=== PATIENT | male | born 1980 | race Caucasian/White ===

== ENCOUNTER 2022-12-18 02:31 | Observation (INO) ==
[2022-12-18 05:48] LABS: ABS Basophils 0.1 10^3/uL (0.0-0.1); ABS Monocytes 0.9 10^3/uL (0.0-1.1); ABS Neutrophils 8.3 10^3/uL (1.5-7.6); ABS Nucleated RBC 0.01 10^3/ul; Eosinophil % 0.1 %; Hematocrit 36.9 % (38-53); Hemoglobin 12.7 g/dL (13.2-16.3); Lymphocyte % 9.4 %; Mean Corpuscular Hemoglobin 30.6 pg (27-33); Mean Corpuscular Hgb Conc 34.5 g/dL (31-36); Mean Corpuscular Volume 88.8 fL (80-97); Mean Platelet Volume 7.6 fL (7.5-11.2); Nucleated Red Blood Cells % 0.1 /100 WBC (0.0-0.4); Platelet Count 250 10^3/uL (150-450); Red Blood Count 4.16 10^6/uL (4.06-5.63); Red Cell Distribution Width 14.4 % (12-17); White Blood Count 10.3 10^3/uL (3.6-10.2)
[2022-12-18 05:50] LABS: Urine Appearance Clear; Urine Bilirubin Negative (Negative); Urine Blood 1+ (Negative); Urine Color Yellow; Urine Glucose Negative (Negative); Urine Ketones Trace (Negative); Urine Nitrite Negative (Negative); Urine Protein Negative (Negative); Urine Specific Gravity 1.012 (1.002-1.030); Urine Urobilinogen Negative (Negative)
[2022-12-18 05:56] LABS: Urine Bacteria Absent (Absent); Urine Red Blood Cell 1+(3-5/hpf) (Absent); Urine White Blood Cell Trace(0-5/hpf) (Absent)
[2022-12-18 06:09] LABS: Albumin 3.8 g/dL (3.2-5.2); Albumin/Globulin Ratio 1.7 (1-3); Calcium 7.9 mg/dL (8.6-10.3); Creatinine, Serum 0.8 mg/dL (0.67-1.17); Globulin 2.2 g/dL (2-4); Potassium 3.1 mmol/L (3.5-5.0); Total Bilirubin 0.6 mg/dL (0.2-1.0); eGFR CKD-EPI 114.7 (>60)
[2022-12-18] MEDS ORDERED: Morphine 4 MG/ML VIAL (1 ml) IV ONE (06:34)
[2022-12-18] MEDS ORDERED: Potassium Chlor 20 meq TAB.ER PO ONE (06:34)
[2022-12-18] MEDS ORDERED: NS 0.9% 1000 ml BAG 1,000 ML IV ONE (06:46)
[2022-12-18] MEDS ORDERED: Buffered Lidocaine 1% SYRIN 1 ml INTRADERM ONE (09:30)
[2022-12-18] MEDS ORDERED: Famotidine IV 10 MG/ML 2 ml VIAL (20 mg) IV ONE (09:30)
[2022-12-18] MEDS ORDERED: Dexamethasone IV 4 MG/ML VIAL 1 ml VIAL IV SLOW PU ONE (09:30)
[2022-12-18] MEDS ORDERED: Lactated Ringers 1000 ml BAG 1,000 ML IV SCH (10:00)
[2022-12-18] MEDS ORDERED: Dexamethasone IV 4 MG/ML VIAL 1 ml VIAL ONE (11:10)
[2022-12-18] MEDS ORDERED: Famotidine IV 10 MG/ML 2 ml VIAL (20 mg) ONE (11:10)
[2022-12-18] MEDS ORDERED: Propofol 10 MG/ML 20 ML BTL ONE ×2 (11:14→12:59)
[2022-12-18] MEDS ORDERED: fentaNYL 100 mcg/2 ml 50 MCG/ML VIAL ONE ×4 (11:14→14:59)
[2022-12-18] MEDS ORDERED: Lidocaine 2% PF 5 ML VIAL ONE (11:15)
[2022-12-18] MEDS ORDERED: ROPIVACAINE 5 MG/ML 30 ML BTL (0.5%) ONE (11:25)
[2022-12-18] MEDS ORDERED: ceFAZolin 2 GM in NS PREMIX 2 GM/100 ML BAG IVPB ONE (11:43)
[2022-12-18] MEDS ORDERED: Glycopyrrolate IV 0.2 MG/ML 1 ML VIAL ONE (12:24)
[2022-12-18] MEDS ORDERED: Phenylephrine 40 mcg/mL 10mL (400mcg) SYRINGE ONE (12:32)
[2022-12-18] MEDS ORDERED: Labetalol IV 5 MG/ML 20 ml VIAL ONE (12:55)
[2022-12-18] MEDS ORDERED: Ondansetron 4 mg VIAL 2 MG/ML 2 ml VIAL ONE (13:15)
[2022-12-18] MEDS ORDERED: Magnesium Hydroxide LIQ 30 ML UDC PO PRN (14:06)
[2022-12-18] MEDS ORDERED: Lactulose 30 ml UDC PO PRN (14:06)
[2022-12-18] MEDS ORDERED: Ondansetron 4 mg VIAL 2 MG/ML 2 ml VIAL IV PRN (14:06)
[2022-12-18] MEDS ORDERED: Morphine 2 MG/ML SYRINGE IV PRN (14:06)
[2022-12-18] MEDS ORDERED: Ondansetron ODT 4 mg TAB 4 MG TAB PO PRN (14:06)
[2022-12-18] MEDS ORDERED: Prochlorperazine 5 mg/ml 2 ml VIAL (10 mg) IV PRN (14:12)
[2022-12-18] MEDS ORDERED: HYDROcodone/ACETAMIN 5/325 mg TAB PO PRN (14:12)
[2022-12-18] MEDS ORDERED: oxyCODONE/Acetamin 5/325 mg TAB PO PRN (14:12)
[2022-12-18] MEDS ORDERED: Naloxone 0.4 mg VIAL 0.4 mg/ml 1 ml VIAL IV PRN (14:12)
[2022-12-18] MEDS ORDERED: HYDROcodone/ACETAMIN 5/325 mg TAB ONE (14:20)
[2022-12-18] MEDS: fentaNYL 100 mcg/2 ml 50 MCG/ML VIAL IV PRN ×3 (14:22→15:00)
[2022-12-18] MEDS ORDERED: Morphine 4 MG/ML VIAL (1 ml) ONE (14:27)
[2022-12-18] MEDS: Morphine 4 MG/ML VIAL (1 ml) IV PRN ×2 (14:31→14:40)
[2022-12-18] MEDS: Lactated Ringers 1000 ml BAG 1,000 ML IV SCH (15:34)
[2022-12-18] MEDS: ceFAZolin 1 GM ADVAN 1 GM in NS 0.9% 50 ML 50 ML IVPB SCH (20:08)
[2022-12-18] MEDS: Magnesium Hydroxide LIQ 30 ML UDC PO SCH (20:38)
[2022-12-19] MEDS: Lactated Ringers 1000 ml BAG 1,000 ML IV SCH (01:45)
[2022-12-19] MEDS: ceFAZolin 1 GM ADVAN 1 GM in NS 0.9% 50 ML 50 ML IVPB SCH ×2 (04:51→12:14)
[2022-12-19 06:11] LABS: Hematocrit 33.2 % (38-53); Hemoglobin 11.4 g/dL (13.2-16.3); Mean Platelet Volume 8.1 fL (7.5-11.2); Platelet Count 196 10^3/uL (150-450)
[2022-12-19 07:27] LABS: Calcium 8.5 mg/dL (8.6-10.3); Creatinine, Serum 0.76 mg/dL (0.67-1.17); Potassium 3.9 mmol/L (3.5-5.0); eGFR CKD-EPI 116.5 (>60)
[2022-12-19] MEDS: Magnesium Hydroxide LIQ 30 ML UDC PO SCH (08:45)
[2022-12-19] MEDS ORDERED: Vitamin THERAPEUTIC TAB PO SCH (09:00)
[2022-12-19 10:14] VITALS: BP 140/73
[2022-12-19] MEDS ORDERED: Enoxaparin 40 MG/0.4 ML SYR SUBCUT SCH (12:00)
== END 2022-12-19 17:30 | disposition home or self-care (01) ==
LOC: ED 02:31 → INTOOBSV 09:13 → EDHOLD 09:13 → AA 10:45 → SSU 15:22
PROVIDERS: ADMIT Orthopaedic Surgery Adult Reconstructive Orthopaedic Surgery; ATTEND Orthopaedic Surgery Adult Reconstructive Orthopaedic Surgery